=== PATIENT | male | born 1975 | race Caucasian/White ===

== ENCOUNTER 2016-08-11 10:38 | Day surgery (SDC) | payer BC ==
--- NOTE | ~2016-08-11 | EGD ---
EGD REPORT [facility] [address] [address] NAME: CARRINGTON ALLAN : [birth year] STATUS : REG [facility]#: [id number] AGE: 40 ADM/REG DATE : 08/11/16 MR#: [id number] REPORT SERV DATE: 08/11/16 DICTATED BY: JUDSON JARAMILLO DATE: 08/11/16 REPORT STATUS : Draft [facility]ED [facility]: [facility] DATE: 08/11/16 [facility] Patient Name: Carrington Allan Date of : 1975 Attending MD: JUDSON JARAMILLO MD Procedure Date No Time: 08/11/2016 Procedure: Upper GI endoscopy Indications: Dyspepsia, Heartburn, Suspected esophageal reflux Referring MD: FAUZIA HIRSCH II Medicines: Propofol per Anesthesia Complications: No immediate complications. Procedure: Pre-Anesthesia Assessment: - ASA Grade Assessment: II - A patient with mild systemic disease. After obtaining informed consent, the endoscope was passed under direct vision. Throughout the procedure, the patient's blood pressure, pulse, and oxygen saturations were monitored continuously. The GIF [id number] was introduced through the mouth, and advanced to the second part of duodenum. The upper GI endoscopy was accomplished without difficulty. The patient tolerated the procedure well. Findings: The examined esophagus was normal. Diffuse mild inflammation characterized by erosions and erythema was found in the stomach. The examined duodenum was normal. 48 hour ph probe placed at 39 cm from the incisor Impression: - Normal esophagus. - Chronic gastritis. - Normal examined duodenum. Recommendation: - Discharge patient to home (ambulatory). - Return to my office in 3 weeks. Procedure Code(s): --- Professional --- 23007, Esophagogastroduodenoscopy, flexible, transoral; diagnostic, including collection of specimen(s) by brushing or washing, when performed (separate procedure) Diagnosis Code(s): --- Professional --- K29.50, Unspecified chronic gastritis without bleeding K30, Functional dyspepsia EGD REPORT [facility] [address] [place] [address] NAME: CARRINGTON ALLAN : [birth year] STATUS : REG [facility] PAT#: [id number] AGE: 40 ADM/REG DATE : 08/11/16 MR#: [id number] REPORT SERV DATE: 08/11/16 DICTATED BY: JUDSON JARAMILLO. DATE: 08/11/16 REPORT STATUS : Draft TRANSCRIBED BY: [employer] DATE: 08/11/16 R12, Heartburn CPT copyright 2013 [employer]. All rights reserved. The codes documented in this report are preliminary and upon health information coder review may be revised to meet current compliance requirements. Judson Jaramillo MD JUDSON JARAMILLO MD 08/11/2016 11:35 AM This report has been signed electronically. Number of Addenda: 0 Note Initiated On: 08/11/2016 10:49 AM Scope Withdrawal Time 0 hours 0 minutes 0 seconds [address] [place] [address]
--- NOTE | ~2016-08-11 | EGD ---
EGD REPORT [facility] [address] [address] NAME: CARRINGTON ALLAN : [birth year] STATUS : REG [facility]#: [id number] AGE: 40 ADM/REG DATE : 08/11/16 MR#: [id number] REPORT SERV DATE: 08/11/16 DICTATED BY: JUDSON JARAMILLO DATE: 08/11/16 REPORT STATUS : Draft TRANSCRIBED BY: [employer] DATE: 08/11/16 [facility] Center Patient Name: Carrington Allan Date of : 1975 Attending MD: JUDSON JARAMILLO MD Procedure Date No Time: 08/11/2016 Procedure: Colonoscopy Indications: Hematochezia Referring MD: FAUZIA HIRSCH II Medicines: Propofol per Anesthesia Complications: No immediate complications. Procedure: Pre-Anesthesia Assessment: - ASA Grade Assessment: II - A patient with mild systemic disease. After I obtained informed consent, the scope was passed under direct vision. Throughout the procedure, the patient's blood pressure, pulse, and oxygen saturations were monitored continuously. The CF [id number] was introduced through the anus and advanced to the cecum, identified by appendiceal orifice and ileocecal valve. The colonoscopy was performed without difficulty. The patient tolerated the procedure well. The quality of the bowel preparation was good. Findings: The perianal and digital rectal examinations were normal. Internal hemorrhoids were found during retroflexion and were Grade II (internal hemorrhoids that prolapse but reduce spontaneously). Many medium-mouthed diverticula were found in the recto-sigmoid colon, in the sigmoid colon and in the descending colon. The rest of the colon was normal. Impression: - Internal hemorrhoids. - Diverticulosis in the recto-sigmoid colon, in the sigmoid colon and in the descending colon. Recommendation: - Discharge patient to home (ambulatory). - Return to nurse practitioner in 3 weeks. Procedure Code(s): --- Professional --- 55559, Colonoscopy, flexible, proximal to splenic flexure; diagnostic, with or without collection of specimen(s) by brushing or washing, with or without colon decompression (separate procedure) EGD REPORT [address] [place]. [address] NAME: CARRINGTON ALLAN : [birth year] STATUS : REG [facility]#: [id number] AGE: 40 ADM/REG DATE : 08/11/16 MR#: [id number] REPORT SERV DATE: 08/11/16 DICTATED BY: JUDSON JARAMILLO. DATE: 08/11/16 REPORT STATUS : Draft TRANSCRIBED BY: [employer] DATE: 08/11/16 Diagnosis Code(s): --- Professional --- K64.1, Second degree hemorrhoids K57.30, Diverticulosis of large intestine without perforation or abscess without bleeding K92.1, Melena CPT copyright 2013 [employer]. All rights reserved. The codes documented in this report are preliminary and upon die press operator review may be revised to meet current compliance requirements. Judson Jaramillo MD JUDSON JARAMILLO MD 08/11/2016 11:45 AM This report has been signed electronically. Number of Addenda: 0 Note Initiated On: 08/11/2016 10:45 AM Scope Withdrawal Time 0 hours 7 minutes [address] [place] [id number]
[~2016-08-11 10:38] MED LIST: ARNUITY ELLIP100 MCG INH; FLONASE NAS; KAPIDEX60 MG PO; PAX20 PO; PROAIR HFA INH; STERAPRED DS10 MG PO
== END 2016-08-11 23:59 | disposition home health service (06) ==
LOC: DMU 10:38
PROVIDERS: Internal Medicine Gastroenterology
PROC: 0DJ08ZZ Inspection of Upper Intestinal Tract, Via Natural or Artificial Opening Endoscopic (ICD-10-PCS; principal; 2016-08-11 11:30)
PROC: 0DJD8ZZ Inspection of Lower Intestinal Tract, Via Natural or Artificial Opening Endoscopic (ICD-10-PCS; 2016-08-11 11:30)
DX: K29.50 Unspecified chronic gastritis without bleeding (principal); K57.30 Diverticulosis of large intestine without perforation or abscess without bleeding; K64.1 Second degree hemorrhoids; J45.909 Unspecified asthma, uncomplicated; K21.9 Gastro-esophageal reflux disease without esophagitis; F41.9 Anxiety disorder, unspecified; Z87.891 Personal history of nicotine dependence
CPT/HCPCS: 91035